=== PATIENT | female | born 1930 | race Caucasian/White ===

== ENCOUNTER → 2018-12-22 | Outpatient (CLI) | payer MEDICARE, BC ==
--- NOTE | 2018-12-22 17:34 | REP ---
REASON: Rib pain. COMPARISON: None. An accompanying frontal view of the chest compared to prior exams 10/25/2011. The only change in the frontal view of the chest prior the prior exam is there has been single chamber bipolar pacemaker device insertion since then. The lung miles are otherwise unchanged showing no acute disease. Multiple views of the left ribs show the bones to be demineralized. Seen involving the anterior end of the 9th rib there might be a fracture. This is at or near the costochondral junction. No other fractures or suspected fractures are evident. IMPRESSION: Possible left sided fracture as described above. Correlate clinically for point tenderness Electronically Signed by Omar Hernandez DO 12/22/2018 06:03 P
== END ==
LOC: M WUC 15:42
PROVIDERS: ATTEND Physician Assistant
DX: R07.1 Chest pain on breathing (principal)

== ENCOUNTER → 2019-11-14 | Outpatient (REF) | payer MEDICARE, BC | LOC: EEVIPCON 16:08 → M LABDRAWC 16:08 | PROVIDERS: ATTEND Urology | DX: N39.0 Urinary tract infection, site not specified (principal) ==